=== PATIENT | female | born 1985 | race Caucasian/White ===

== ENCOUNTER 2023-05-07 15:44 | Emergency (ER) | payer SELFPAY ==
[2023-05-07] MEDS ORDERED: PRENTAB9 PO (16:22)
[2023-05-07] MEDS ORDERED: PROG1CAP9 PO (16:22)
[2023-05-07] MEDS ORDERED: SYNT50TA PO (16:22)
== END 2023-05-07 15:54 | disposition left against medical advice (07) ==
LOC: M ED 15:44
DX: Z53.21 Procedure and treatment not carried out due to patient leaving prior to being seen by health care provider (principal)

== ENCOUNTER 2023-09-01 19:15 | Outpatient (CLI) | payer OTHER ==
[~2023-09-01] VITALS: Ht 157.5 cm; Wt 74.5 kg
[~2023-09-01 19:15] MED LIST: PRENTAB9 PO; PROG1CAP9 PO; SYNT50TA PO
[2023-09-01 19:34] VITALS: BP 130/73
[2023-09-01] MEDS ORDERED: HOME MED LIST COMPLETE! XX SCH (19:35)
== END 2023-09-01 20:18 | disposition home or self-care (01) ==
LOC: M LDO 19:15
PROVIDERS: ATTEND Obstetrics & Gynecology
DX: O26.893 Other specified pregnancy related conditions, third trimester (principal); R25.2 Cramp and spasm; Z3A.36 36 weeks gestation of pregnancy; O09.813 Supervision of pregnancy resulting from assisted reproductive technology, third trimester; Z79.890 Hormone replacement therapy
CPT/HCPCS: 59025; G0463

== ENCOUNTER 2023-09-08 19:54 | Outpatient (CLI) | payer OTHER ==
[~2023-09-08] VITALS: Ht 157.5 cm; Wt 76.9 kg
[2023-09-08 21:06] VITALS: BP 115/66
== END 2023-09-08 21:00 | disposition home or self-care (01) ==
LOC: M LDO 19:54
PROVIDERS: ATTEND Advanced Practice Midwife
DX: O47.03 False labor before 37 completed weeks of gestation, third trimester (principal); Z3A.37 37 weeks gestation of pregnancy; O99.283 Endocrine, nutritional and metabolic diseases complicating pregnancy, third trimester; E03.9 Hypothyroidism, unspecified; O99.013 Anemia complicating pregnancy, third trimester; Z79.890 Hormone replacement therapy
CPT/HCPCS: 59025; G0463

== ENCOUNTER 2023-09-10 19:39 | Inpatient (IN) | payer OTHER ==
[~2023-09-10] VITALS: Ht 157.5 cm; Wt 76.7 kg
[2023-09-10] MEDS ORDERED: HOME MED LIST COMPLETE! XX SCH (19:50)
[2023-09-10 19:52] VITALS: BP 119/67
[2023-09-10] MEDS: LACTATED RINGER'S 1000 ML IV STA (20:03)
[2023-09-10] MEDS ORDERED: TRANEXAMIC ACID INJection 1,000 MG in NS 100 ML IV PRN (20:05)
[2023-09-10] MEDS ORDERED: METHYLERGONOVINE MALEATE 0.2MG/ML 1ML VIAL IM PRN (20:05)
[2023-09-10] MEDS ORDERED: LIDOCAINE 1% MDV 20ML VIAL INFIL PRN (20:05)
[2023-09-10] MEDS ORDERED: OXYTOCIN INJ 10UNITS/ML 1ML VIAL IV PRN (20:05)
[2023-09-10] MEDS ORDERED: OXYTOCIN DRIP 30 UNITS in IV 1 EA IV SCH (20:05)
[2023-09-10] MEDS ORDERED: OXYTOCIN INJ 10UNITS/ML 1ML VIAL IM PRN (20:05)
[2023-09-10] MEDS ORDERED: LR 1,000 ML IV SCH (20:05)
[2023-09-10] MEDS ORDERED: CARBOPROST TROMETHAMINE 250 MCG/ML AMP IM PRN (20:05)
[2023-09-10] MEDS ORDERED: OXYTOCIN DRIP 30 UNITS in IV 1 EA IV PRN (20:05)
[2023-09-10 20:22] LABS: HEMATOCRIT 33.2 % (36.0-47.0); HEMOGLOBIN 11.2 g/dl (12.0-15.5); MEAN CORPUSCULAR HEMOGLOBIN 28.6 pg (27.0-33.0); MEAN CORPUSCULAR HGB CONC 33.7 g/dl (32.0-36.5); MEAN CORPUSCULAR VOLUME 84.7 fl (80.0-96.0); PLATELET COUNT, AUTOMATED 300 10^3/uL (150-450); RED BLOOD COUNT 3.92 10^6/uL (4.00-5.40); WHITE BLOOD COUNT 9.2 10^3/uL (4.0-10.0)
[2023-09-10] MEDS: LR 1,000 ML IV SCH (20:24)
[2023-09-10] MEDS: PENICILLIN G POTASSIUM 5 MU IV 5 MU in D5W MINI-BAG PLUS 100 ML IV STA (20:24)
[2023-09-10 21:47] VITALS: BP 136/84
[2023-09-11] VITALS (10 sets, daily range): BP systolic 117–164; BP diastolic 58–82; O2SAT 96–99
[2023-09-11] MEDS: PEN G POT 3,000,000 UNIT/50 ML 3,000,000 UNIT in IV 1 EA IV SCH (00:26)
[2023-09-11] MEDS ORDERED: DIBUCAINE 1% OINTMENT 30GM TOP PRN (02:50)
[2023-09-11] MEDS ORDERED: METHYLERGONOVINE MALEATE 0.2 MG TAB PO PRN (02:50)
[2023-09-11] MEDS ORDERED: RHOGAM 300MCG (1500IU) INJ IM SCH (02:50)
[2023-09-11] MEDS ORDERED: DOCUSATE SODIUM 100MG CAPSULE PO PRN (02:50)
[2023-09-11] MEDS ORDERED: ACETAMINOPHEN 500 MG TAB PO PRN (02:50)
[2023-09-11] MEDS: OXYTOCIN DRIP 30 UNITS in IV 1 EA IV PRN (02:56)
[2023-09-11] MEDS: IBUPROFEN 800 MG TAB PO PRN (05:07)
[2023-09-11] MEDS: LEVOTHYROXINE 50MCG TABLET (0.05MG) PO SCH (06:24)
[2023-09-11] MEDS: PRENATAL VITAMINS CHEWABLE TABLET PO SCH (08:01)
[2023-09-11] MEDS ORDERED: PRENATAL VITAMINS CHEWABLE TABLET PO SCH (09:00)
[2023-09-12 06:00] VITALS: BP 106/55; O2SAT 98
[2023-09-13] MEDS ORDERED: MEASLES,MUMPS,RUBELLA VACCINE INJ (MMR-II) SC.IMMUN ONE (09:00)
== END 2023-09-12 14:40 | disposition home or self-care (01) | DRG 807 ==
LOC: M LDO 19:39 → M LDI 20:11 → M OBS 09-11 04:34
PROVIDERS: ADMIT Obstetrics & Gynecology; ATTEND Obstetrics & Gynecology
PROC: 10E0XZZ Delivery of Products of Conception, External Approach (ICD-10-PCS; principal; 2023-09-11)
PROC: 10907ZC Drainage of Amniotic Fluid, Therapeutic from Products of Conception, Via Natural or Artificial Opening (ICD-10-PCS; 2023-09-11)
DX: O99.824 Streptococcus B carrier state complicating childbirth (principal); Z37.0 Single live birth; Z3A.38 38 weeks gestation of pregnancy